=== PATIENT | female | born 1980 | race Two or more races ===

== ENCOUNTER 2017-03-28 08:29 | Inpatient (IN) | payer MEDICAID ==
[~2017-03-28] VITALS: Ht 154.9 cm; Wt 64.5 kg
[2017-03-28 09:38] LABS: Basophils # (auto) 0 uL; Basophils % (auto) 0.1 % (0.0-2.0); CONDITION Y; Eosinophils # (auto) 0 uL; Hematocrit 41.7 % (36.0-46.0); Hemoglobin 14.4 g/dL (12.2-16.2); Lymphocytes # (auto) 0.7 uL; Mean Corpuscular Hemoglobin 33.1 pg (28.0-32.0); Mean Corpuscular Hgb Conc. 34.6 g/dL (32.0-36.0); Mean Corpuscular Volume 95.8 fL (80.0-100.0); Mean Platelet Volume 8.5 fL (7.4-10.4); Monocytes # (auto) 0.5 uL; Monocytes % (auto) 3.3 % (0.0-12.0); Neutrophils # (auto) 12.6 uL; Neutrophils % (auto) 91.6 % (37.0-80.0); Platelet Count (auto) 309 10^3/uL (140-450); Red Cell Distribution Width 12.9 % (11.6-16.0); White Blood Cell 13.8 10^3/uL (4.4-10.8)
[2017-03-28 10:08] LABS: Urine Bilirubin Negative (Negative); Urine Blood Negative /uL (Negative); Urine Color Yellow (Yellow); Urine Glucose Normal (Normal); Urine Nitrite Negative (Negative); Urine RBC 2 /hpf (0 - 4); Urine Squamous Epithelial Cell FEW /hpf (<5); Urine Urobilinogen Normal (Negative)
[2017-03-28 10:14] LABS: Urine Ketone 1+ (Negative)
[2017-03-28 10:51] LABS: Albumin 3.7 g/dL (3.4-5.0); BUN/Creatinine Ratio 4.4; Calcium 8.5 mg/dL (8.5-10.1); Potassium 3.6 mmol/L (3.5-5.1); Total Protein 7.5 g/dL (6.4-8.2)
[2017-03-28] MEDS ORDERED: SODIUM CHLORIDE 0.9% 1,000 ML IV ONE (11:34)
[2017-03-28] MEDS ORDERED: cefTRIAXone 1GM/50ML D5W 50 ML IV ONE (11:45)
[2017-03-28] MEDS ORDERED: ONDANSETRON HCL 4 MG/2 ML VIAL IV PRN (13:00)
[2017-03-28] MEDS ORDERED: LORazepam 0.5 MG TAB PO PRN (13:00)
[2017-03-28] MEDS ORDERED: THIAMINE HCL 100 MG/ML 2ML VIAL IV ONE (13:00)
[2017-03-28] MEDS ORDERED: PANTOPRAZOLE SODIUM 40 MG/10 ML VIAL IV ONE (13:00)
[2017-03-28] MEDS ORDERED: TEMAZEPAM 15 MG CAP PO PRN (13:00)
[2017-03-28] MEDS ORDERED: chlordiazePOXIDE HCL 5 MG CAP PO PRN (13:15)
[2017-03-28] MEDS ORDERED: MORPHINE SULF INJ 2 MG/ML SYRINGE 1ML ONE (14:02)
[2017-03-28] MEDS: MORPHINE SULF INJ 2 MG/ML SYRINGE 1ML IV PRN (14:13)
[2017-03-28] MEDS: SODIUM CHLORIDE 0.9% 1,000 ML IV SCH (14:13)
[2017-03-28 15:30] VITALS: BP 112/64
[2017-03-28 17:00] VITALS: BP 112/64
[2017-03-28] MEDS: ACETAMINOPHEN 500 MG TAB PO PRN (17:07)
[2017-03-28] MEDS: HYDROcodone-ACET 5/325MG TAB PO PRN (17:53)
[2017-03-28 20:00] VITALS: BP 105/61
[2017-03-28 21:47] VITALS: BP 105/61
[2017-03-29] MEDS: HYDROcodone-ACET 5/325MG TAB PO PRN ×3 (00:11→23:46)
[2017-03-29] MEDS: SODIUM CHLORIDE 0.9% 1,000 ML IV SCH ×2 (04:35→09:00)
[2017-03-29 05:00] VITALS: BP 121/65
[2017-03-29] MEDS: ACETAMINOPHEN 500 MG TAB PO PRN ×2 (05:07→17:28)
[2017-03-29 06:40] LABS: Basophils # (auto) 0 uL; CONDITION Y; Eosinophils # (auto) 0 uL; Eosinophils % (auto) 0.1 % (0.0-7.0); Hematocrit 36.2 % (36.0-46.0); Hemoglobin 12.7 g/dL (12.2-16.2); Lymphocytes # (auto) 0.6 uL; Lymphocytes % (auto) 3.5 % (10.0-50.0); Mean Corpuscular Hemoglobin 33.4 pg (28.0-32.0); Mean Corpuscular Volume 95.5 fL (80.0-100.0); Mean Platelet Volume 8.4 fL (7.4-10.4); Monocytes # (auto) 1.2 uL; Monocytes % (auto) 7.2 % (0.0-12.0); Neutrophils # (auto) 14.5 uL; Neutrophils % (auto) 89.2 % (37.0-80.0); Platelet Count (auto) 236 10^3/uL (140-450); Red Cell Distribution Width 12.9 % (11.6-16.0); White Blood Cell 16.3 10^3/uL (4.4-10.8)
[2017-03-29 07:16] LABS: Albumin 2.7 g/dL (3.4-5.0); BUN/Creatinine Ratio 7.3; Calcium 7.7 mg/dL (8.5-10.1)
[2017-03-29 07:34] LABS: Bilirubin, Total 0.8 mg/dL (0.2-1.0); Total Protein 6.3 g/dL (6.4-8.2)
[2017-03-29 07:45] LABS: Potassium 2.9 mmol/L (3.5-5.1)
[2017-03-29 09:00] VITALS: BP 96/60
[2017-03-29] MEDS ORDERED: cefTRIAXone 1GM/50ML D5W 50 ML IV SCH (09:00)
[2017-03-29] MEDS: PANTOPRAZOLE SODIUM 40 MG/10 ML VIAL IV SCH (10:47)
[2017-03-29] MEDS: MORPHINE SULF INJ 2 MG/ML SYRINGE 1ML IV PRN ×2 (11:57→20:25)
[2017-03-29 12:23] VITALS: BP 124/67
[2017-03-29] MEDS ORDERED: POTASSIUM CHL 20 Meq TABLET PO ONE (16:15)
[2017-03-29] MEDS: SOD CHL 0.9%/ KCL 40MEQ 1,000 ML IV SCH (16:15)
[2017-03-29] MEDS ORDERED: PIPERACILLIN-TAZOB 3.375GM 100 ML IV ONE (16:35)
[2017-03-29 16:42] VITALS: BP 108/73
[2017-03-29 20:00] VITALS: BP 105/71
[2017-03-29 21:43] VITALS: BP 105/71
[2017-03-30] MEDS: SOD CHL 0.9%/ KCL 40MEQ 1,000 ML IV SCH ×3 (00:35→08:55)
[2017-03-30] MEDS: PIPERACILLIN-TAZOB 3.375GM 100 ML IV SCH ×3 (00:36→12:01)
[2017-03-30] MEDS: ACETAMINOPHEN 500 MG TAB PO PRN (06:33)
[2017-03-30 06:52] LABS: Basophils # (auto) 0 uL; Basophils % (auto) 0.2 % (0.0-2.0); CONDITION Y; Eosinophils # (auto) 0 uL; Eosinophils % (auto) 0.1 % (0.0-7.0); Hematocrit 40.9 % (36.0-46.0); Lymphocytes # (auto) 1.4 uL; Lymphocytes % (auto) 10.8 % (10.0-50.0); Mean Corpuscular Hemoglobin 33.1 pg (28.0-32.0); Mean Corpuscular Hgb Conc. 34.2 g/dL (32.0-36.0); Mean Corpuscular Volume 96.8 fL (80.0-100.0); Mean Platelet Volume 8.5 fL (7.4-10.4); Monocytes # (auto) 1.2 uL; Monocytes % (auto) 9.9 % (0.0-12.0); Neutrophils # (auto) 9.9 uL; Platelet Count (auto) 241 10^3/uL (140-450); Red Cell Distribution Width 13.4 % (11.6-16.0); White Blood Cell 12.5 10^3/uL (4.4-10.8)
[2017-03-30 08:00] VITALS: BP 96/62
[2017-03-30 09:22] VITALS: BP 96/62
[2017-03-30] MEDS: PANTOPRAZOLE SODIUM 40 MG/10 ML VIAL IV SCH (09:48)
[2017-03-30] MEDS: HYDROcodone-ACET 5/325MG TAB PO PRN (09:48)
[2017-03-30] MEDS ORDERED: SODIUM CHLORIDE 0.9% 1,000 ML IV ONE (11:00)
[2017-03-30 12:58] VITALS: BP 91/64
[2017-03-30 13:07] VITALS: BP 91/64
== END 2017-03-30 14:15 | disposition home or self-care (01) | DRG 720 ==
LOC: ER 08:29 → TELE 08:30 → WEST WING 14:50
PROVIDERS: ADMIT Nurse Practitioner Family; ATTEND Internal Medicine
DX: A41.9 Sepsis, unspecified organism (principal); N12 Tubulo-interstitial nephritis, not specified as acute or chronic; N39.0 Urinary tract infection, site not specified; F41.9 Anxiety disorder, unspecified; F17.210 Nicotine dependence, cigarettes, uncomplicated; Z71.89 Other specified counseling; B96.20 Unspecified Escherichia coli [E. coli] as the cause of diseases classified elsewhere
CPT/HCPCS: 36415; 71010; 74176; 80053; 81001; 81025; 85025; 87040; 87086; 87088; 87186; 96365; 96375; C9113; J0696; J2543

== ENCOUNTER 2024-06-18 12:17 | Emergency (ER) | payer MEDICAID ==
[~2024-06-18] VITALS: Ht 154.9 cm; Wt 5.0 kg
[2024-06-18 14:33] VITALS: BP 118/83; PULSE 91; RESP 18; TEMP 98; O2SAT 98
[2024-06-18] MEDS ORDERED: GABA-1308 PO (14:36)
[2024-06-18] MEDS ORDERED: MELO7.5T7 PO (14:36)
[2024-06-18] MEDS: methylPREDNISolone SOD SUCC 125 MG/2 ML VL IM ONE (14:41)
== END 2024-06-18 14:47 | disposition home or self-care (01) ==
LOC: ER 12:17
DX: G56.02 Carpal tunnel syndrome, left upper limb (principal); F17.210 Nicotine dependence, cigarettes, uncomplicated; Z79.1 Long term (current) use of non-steroidal anti-inflammatories (NSAID); Z79.899 Other long term (current) drug therapy
CPT/HCPCS: 96372; 99283; J2919